=== PATIENT | female | born 1985 | race Caucasian/White ===

== ENCOUNTER → 2016-11-01 | Outpatient (CLI) | payer OTHER | END | disposition home or self-care (01) | LOC: C.PAPS 14:13 | PROVIDERS: ATTEND Obstetrics & Gynecology | DX: Z12.4 Encounter for screening for malignant neoplasm of cervix (principal) ==

== ENCOUNTER → 2018-01-27 | Outpatient (CLI) | payer OTHER | END | disposition home or self-care (01) | LOC: C.LAB1850 12:49 | PROVIDERS: ATTEND Physician Assistant | DX: N91.2 Amenorrhea, unspecified (principal) ==

== ENCOUNTER → 2018-05-04 | Outpatient (CLI) | payer OTHER ==
[2018-05-04 11:16] LABS: FOLLICLE STIMULAT HORMONE 6.71 IU/L; LUTEINIZING HORMONE 11.86 IU/L; PROLACTIN 8.06 ng/mL
== END | disposition home or self-care (01) ==
LOC: C.LAB1850 09:30
PROVIDERS: ATTEND Internal Medicine Endocrinology, Diabetes & Metabolism
DX: N91.2 Amenorrhea, unspecified (principal)

== ENCOUNTER 2019-04-18 20:07 | Inpatient (IN) ==
--- NOTE | 2019-04-18 20:30 | History & Physical Report ---
Date of Service April 18, 2019 Assessment & Plan (1) 40 weeks gestation of : Labor - will admit to L&D. OK for epidural. Labs, IV, EFM/toco. Patient is amenable to pitocin augmentation if needed. History of Present Illness Chief Complaint: contractions Primary Care Provider: CATRACHITA PCP 34yo @ 40 0/7 presents with regular contractions. No leaking of fluid or vaginal bleeding. + movement. complicated by Rh negative status. Rec'd Rhogam 01/25/19. Had shingles at 30w in this . Patient History Medical History Migraines Shingles Social History Preferred Language: French Communication Ability: Effective Community Cultural Development Officer Required: No Beliefs That Will Affect Care: None marital status: Current Living Situation: Spouse Other Information That Helps Us Care for You: No Feels Safe at Home: Yes Safety Concerns: Feels Safe At This Time Smoking Status: Never smoker Hx Alcohol Use: No Hx Substance Use: No Review of Systems All systems reviewed & are unremarkable except as noted in HPI & below Physical Exam Physical Exam: Gen: AAOx3 NAD CV: RRR L: CTAB Abd: soft, gravid, NTTP. Ext: no edema, no calf tenderness FHT: 150s mod lorri. +accels. +early decels with ctx [place]: Q 2-4 min SVE: 5/100/-2, bulging membranes Results & Data Vital Signs (Past 12 Hours) Vital Signs Pulse BP 04/18/19 20:22 63 118/77
[2019-04-18] MEDS ORDERED: OXYTOCIN 30 UNITS/500 ML BAG IV PRN ×2 (20:42)
[2019-04-18] MEDS: LACTATED RINGER'S 1,000 ML IV PRN ×2 (20:45→21:50)
[2019-04-18] MEDS ORDERED: ePHEDrine sulfate 50 MG/ML AMP ONE (20:49)
[2019-04-18] MEDS ORDERED: BUPIVACAINE 0.25% 30 ML VIAL ONE (20:49)
[2019-04-18] MEDS ORDERED: fentaNYL 2MCG/ML ROPIV 1.25MG/ML 100 ML BAG EPI ONE (20:49)
[2019-04-18] MEDS ORDERED: fentaNYL citrate 100 MCG/2 ML VIAL ONE (20:49)
[2019-04-18 21:15] LABS: Hemoglobin 11.4 g/dL (12.0-16.0); Mean Corpuscular Volume 90.9 fL (80-100); Mean Platelet Volume 10.7 fL (7.4-10.4); Platelet Count 178 K/uL (130-400); RDW Coefficient of Variation 12.4 % (11.5-14.5); RDW Standard Deviation 41.3 fL (36.4-46.3); Red Blood Count 3.63 M/uL (4.2-5.4); White Blood Count 11.92 K/uL (4.8-10.8)
[2019-04-18] MEDS ORDERED: DiphenhydrAMINE HCL 50 MG/ML VIAL IV PRN (21:30)
[2019-04-18] MEDS ORDERED: ONDANSETRON INJ 2 MG/ML 2 ML VIAL IV PRN (21:30)
[2019-04-18] MEDS ORDERED: NALOXONE HCL 1 MG in SODIUM CHLORIDE 0.9% 1000ML 1,000 ML IV PRN (21:30)
[2019-04-18] MEDS ORDERED: NALOXONE HCL 0.4 MG/1 ML VIAL/CARP IV PRN (21:30)
[2019-04-18] MEDS ORDERED: NALBUPHINE HCL INJ 10 MG/ML AMP IV PRN (21:30)
[2019-04-18] MEDS ORDERED: ePHEDrine sulfate 50 MG/ML AMP IV PRN (21:30)
[2019-04-18] MEDS ORDERED: fentaNYL 2MCG/ML ROPIV 1.25MG/ML 100 ML BAG EPI PRN (21:30)
--- NOTE | 2019-04-18 21:30 | Anesthesiology Consultation ---
Date of Service April 18, 2019 History Height/Weight Height: 5 ft 3 in Weight: 71.758 kg Past Medical History Medical History Migraines Shingles Social History Smoking Status: Never smoker Hx Alcohol Use: No Hx Substance Use: No Physical Exam Vital Signs Last Vital Signs Temp 36.7 C 04/18/19 20:23 Pulse 63 04/18/19 20:22 Resp 18 04/18/19 20:23 BP 118/77 04/18/19 20:22 Testing Laboratory Results 04/18/19 20:54
--- NOTE | 2019-04-18 21:34 | Anesthesiology Consultation ---
Date of Service April 18, 2019 Assessment & Plan Chart Review Chart Review: Patient NOT seen in Pre Admission Testing and Acceptable Risk for Labor Epidural Consults Requested none ASA ASA2 Proposed Anesthesia Anesthesia Type: Labor Epidural and CSE Risk / Benefits Reviewed With: PT / POA / Parent / Guardian, Accepts Plan and Informed Consent Obtained History Height/Weight Height: 5 ft 3 in Weight: 71.758 kg NPO Date Last Intake of Fluids: 04/18/19 Time Last Intake of Fluids: 19:30 Date Last Intake of Solids: 04/18/19 Time Last Intake of Solids: 15:30 Past Medical History Medical History Migraines Shingles Exercise / Class Metabolic Activity II 4-5 Yardwork/Stairs/Walk up hill Past Anesthesia History No Hx of Anesthesia Complications and No Family Hx of Anesthesia Complications History of PONV No Hx of PONV Social History Smoking Status: Never smoker Hx Alcohol Use: No Hx Substance Use: No Review of Systems no chest pain or sob Physical Exam Vital Signs Last Vital Signs Temp 36.7 C 04/18/19 20:23 Pulse 63 04/18/19 20:22 Resp 18 04/18/19 20:23 BP 118/77 04/18/19 20:22 ENMT Mouth: no TMJ abnormality Thyromental Distance: > or= 3.5 Finger Breadths Mallampati Class: II Neck normal visual inspection Respiratory normal respiratory effort Auscultation: lungs clear to auscultation bilaterally Cardiovascular Rate/Rhythm: regular rate and regular rhythm Musculoskeletal Spine: normal cervical ROM Neurologic moves all extremities Psychiatric Orientation: alert and oriented x 3 Testing Laboratory Results 04/18/19 20:54
[2019-04-18 22:04] LABS: Mean Corpuscular Hgb Conc 34.5 g/dL (32-36)
--- NOTE | 2019-04-18 23:29 | Obstetrical Progress Note ---
Date of Service April 18, 2019 Subjective Comfortable with epidural. FHT 130s. Mod lorri. +accels. Early decels. Rare late/variable decels. [place] Q 4 SVE 7-8/100/-1, SROM during cervix exam for clear fluid Continue labor. Anticipate . Results & Data Vital Signs (Past 12 Hours) Vital Signs Temp Pulse Resp BP Pulse Ox 04/18/19 23:24 86 109/70 100 04/18/19 23:21 68 105/60 04/18/19 23:19 72 100 04/18/19 23:18 71 99/59 L 04/18/19 23:15 68 100/59 L 04/18/19 23:14 64 100 04/18/19 23:12 75 99/58 L 04/18/19 23:09 69 102/60 100 04/18/19 23:07 74 105/62 04/18/19 23:04 70 100 04/18/19 23:03 68 101/62 04/18/19 23:00 71 101/63 04/18/19 22:59 78 100 04/18/19 22:57 71 101/65 04/18/19 22:54 70 108/62 100 04/18/19 22:51 73 101/62 04/18/19 22:49 68 99 04/18/19 22:48 70 106/64 04/18/19 22:45 71 102/59 L 04/18/19 22:44 72 100 04/18/19 22:42 71 105/59 L 04/18/19 22:39 62 110/64 100 04/18/19 22:37 71 103/64 04/18/19 22:34 67 100 04/18/19 22:33 71 110/72 04/18/19 22:30 65 108/68 04/18/19 22:29 89 99 04/18/19 22:27 71 101/68 04/18/19 22:24 82 100/67 99 04/18/19 22:21 69 110/72 04/18/19 22:19 68 99 04/18/19 22:18 68 111/73 04/18/19 22:15 67 111/72 04/18/19 22:14 69 99 04/18/19 22:12 77 110/71 04/18/19 22:09 68 110/69 100 04/18/19 22:06 68 102/62 04/18/19 22:04 79 100 04/18/19 22:03 77 111/70 04/18/19 22:00 80 110/67 04/18/19 21:59 76 98 04/18/19 21:57 76 107/66 04/18/19 21:54 73 105/60 98 04/18/19 21:51 80 106/68 04/18/19 21:49 79 100 04/18/19 21:48 75 110/69 04/18/19 21:45 75 120/76 04/18/19 21:44 89 100 04/18/19 21:39 87 99 04/18/19 21:34 82 100 04/18/19 20:23 36.7 C 18 04/18/19 20:22 63 118/77
--- NOTE | 2019-04-19 02:00 | Obstetrical Progress Note ---
Date of Service April 19, 2019 Subjective Feeling urge to push with contractions. FHT 130s mod lorri +accels. prolonged decel with a long contraction, recovered. [place] Q 3-6 min SVE complete/100/0 to +1 station Beginning to push. Anticipate . Results & Data Vital Signs (Past 12 Hours) Vital Signs Temp Pulse Resp BP Pulse Ox 04/19/19 01:54 94 H 100 04/19/19 01:49 78 137/59 L 100 04/19/19 01:44 64 100 04/19/19 01:43 68 99/58 L 04/19/19 01:39 78 98 04/19/19 01:34 76 100 04/19/19 01:31 70 118/67 04/19/19 01:29 76 100 04/19/19 01:27 62 104/64 04/19/19 01:24 68 102/60 100 04/19/19 01:21 71 104/61 04/19/19 01:19 70 114/69 100 04/19/19 01:15 74 104/63 04/19/19 01:14 70 100 04/19/19 01:12 66 107/68 04/19/19 01:09 68 103/63 100 04/19/19 01:06 69 100/65 04/19/19 01:04 65 100 04/19/19 01:03 67 100/62 04/19/19 01:00 77 99/60 L 04/19/19 00:59 73 100 04/19/19 00:57 75 104/62 04/19/19 00:54 151 H 111/65 100 04/19/19 00:52 66 108/64 04/19/19 00:49 76 100 04/19/19 00:48 81 100/61 04/19/19 00:45 70 102/63 04/19/19 00:44 67 100 04/19/19 00:42 70 108/64 04/19/19 00:39 73 100/62 100 04/19/19 00:36 68 101/62 18 00:34 79 100 04/19/19 00:33 69 106/65 18 00:30 67 108/62 04/19/19 00:29 69 100 04/19/19 00:27 67 108/63 04/19/19 00:24 74 104/63 100 04/19/19 00:21 75 107/61 04/19/19 00:19 71 100 04/19/19 00:18 68 109/60 04/19/19 00:16 69 118/66 04/19/19 00:14 76 100 04/19/19 00:12 74 106/62 04/19/19 00:09 75 114/72 100 04/19/19 00:06 70 109/66 04/19/19 00:04 75 100 04/19/19 00:03 75 109/65 04/19/19 00:00 37.0 C 70 107/65 04/18/19 23:59 70 100 04/18/19 23:57 67 110/67 04/18/19 23:55 68 117/68 04/18/19 23:54 65 100 04/18/19 23:51 64 103/64 04/18/19 23:49 71 100 04/18/19 23:48 68 106/63 04/18/19 23:45 68 106/61 04/18/19 23:44 74 100 04/18/19 23:42 70 108/64 04/18/19 23:39 72 98/60 L 100 04/18/19 23:36 64 102/65 04/18/19 23:35 68 100/56 L 04/18/19 23:34 74 100 04/18/19 23:30 70 93 04/18/19 23:29 77 100 04/18/19 23:28 73 109/62 04/18/19 23:24 86 109/70 100 04/18/19 23:21 68 105/60 04/18/19 23:19 72 100 04/18/19 23:18 71 99/59 L 04/18/19 23:15 68 100/59 L 04/18/19 23:14 64 100 04/18/19 23:12 75 99/58 L 04/18/19 23:09 69 102/60 100 04/18/19 23:07 74 105/62 04/18/19 23:04 70 100 04/18/19 23:03 68 101/62 04/18/19 23:00 71 101/63 04/18/19 22:59 78 100 04/18/19 22:57 71 101/65 04/18/19 22:54 70 108/62 100 04/18/19 22:51 73 101/62 04/18/19 22:49 68 99 04/18/19 22:48 70 106/64 04/18/19 22:45 71 102/59 L 04/18/19 22:44 72 100 04/18/19 22:42 71 105/59 L 04/18/19 22:39 62 110/64 100 04/18/19 22:37 71 103/64 04/18/19 22:34 67 100 04/18/19 22:33 71 110/72 04/18/19 22:30 65 108/68 04/18/19 22:29 89 99 04/18/19 22:27 71 101/68 04/18/19 22:24 82 100/67 99 04/18/19 22:21 69 110/72 04/18/19 22:19 68 99 04/18/19 22:18 68 111/73 04/18/19 22:15 67 111/72 04/18/19 22:14 69 99 04/18/19 22:12 77 110/71 04/18/19 22:09 68 110/69 100 04/18/19 22:06 68 102/62 04/18/19 22:04 79 100 04/18/19 22:03 77 111/70 04/18/19 22:00 80 110/67 04/18/19 21:59 76 98 04/18/19 21:57 76 107/66 04/18/19 21:54 73 105/60 98 04/18/19 21:51 80 106/68 04/18/19 21:49 79 100 04/18/19 21:48 75 110/69 04/18/19 21:45 75 120/76 04/18/19 21:44 89 100 04/18/19 21:39 87 99 04/18/19 21:34 82 100 04/18/19 20:23 36.7 C 18 04/18/19 20:22 63 118/77
--- NOTE | 2019-04-19 05:17 | Delivery Summary ---
Vaginal Delivery Summary Date of Service April 19, 2019 Vaginal Delivery Summary Vaginal Delivery Summary: Pre-delivery diagnoses: 34yo @ 40 /, spontaneous labor Post-delivery diagnoses: same Procedure: spontaneous vaginal delivery Surgeon: Luz Davis DO Complications: none Findings: Viable female . Apgars: 8/9. Weight pending, please see nursery records. Estimated blood loss: 300ml Description of delivery: The patient progressed to complete with epidural anesthesia. She then began to push. She spontaneously vaginally delivered a viable female from the cephalic presentation. The head delivered in DEMETRI position. No nuchal cord noted. The anterior shoulder delivered, followed by the posterior shoulder, followed by the body. The baby was placed on mother's abdomen and a spontaneous cry was heard. The cord was doubly clamped and cut. A segment was retained for cord gases. Cord blood was obtained. The placenta was delivered spontaneously intact with a 3-vessel cord. The uterus and vagina were swept of clots and debris. IV pitocin was given. The uterus became firm. The cervix, vagina, and perineum were inspected and a left sulcal vaginal laceration was noted and repaired. There was a superficial perineal laceration, but this was hemostatic and not repaired. Excellent hemostasis was observed. The mother and baby are recovering in stable and good condition in the room. Sponge, needle, and instrument counts were correct x 2. Luz Davis DO [facility] [place]
--- NOTE | 2019-04-19 06:03 | Anesthesia Procedure Note ---
Date of Service April 19, 2019 Anesthesia Post Epidural Note Vital Signs Vital Signs: Temp Pulse Resp BP Pulse Ox 36.9 C 83 18 105/61 99 04/19/19 02:10 04/19/19 05:49 04/19/19 04:15 04/19/19 05:49 04/19/19 04:49 Notes Mental Status: alert / awake / arousable and participated in evaluation Nausea / Vomiting: adequately controlled Pain: adequately controlled Airway Patency, RR, SpO2: stable & adequate BP & HR: stable & adequate Hydration State: stable & adequate Neuraxial Anesthesia: was administered and sensory block is resolving Anesthetic Complications: no major complications apparent and Pt Satisfied with anesthetic care Epidural: Removed without complications and With tip intact
[2019-04-19] MEDS ORDERED: SUPERCREAM 0.870% 15 GM JAR EXT PRN (06:11)
[2019-04-19] MEDS ORDERED: BENZOCAINE 20% AER SPR 82.5 GM CAN EXT PRN (06:11)
[2019-04-19] MEDS ORDERED: HYDROCORTISONE ACETATE 25 MG SUPP PR PRN (06:11)
[2019-04-19] MEDS ORDERED: ACETAMINOPHEN 325 MG TAB PO PRN (06:11)
[2019-04-19] MEDS ORDERED: OXYTOCIN 30 UNITS/500 ML BAG IV PRN (06:11)
[2019-04-19] MEDS ORDERED: BISACODYL 10 MG SUPP PR PRN (06:11)
[2019-04-19] MEDS ORDERED: OXYCODONE/ACETAMINOPHEN 5mg/325mg TAB PO PRN (06:11)
[2019-04-19] MEDS: IBUPROFEN 600 MG TAB PO PRN ×3 (09:09→20:37)
[2019-04-19] MEDS: DOCUSATE SODIUM 100 MG CAP PO SCH ×2 (17:52→20:36)
[2019-04-19] MEDS: PRENATAL VITAMIN 1 TAB PO SCH (17:52)
[2019-04-20] MEDS: IBUPROFEN 600 MG TAB PO PRN ×4 (04:40→21:20)
--- NOTE | 2019-04-20 05:49 | Obstetrical Progress Note ---
Date of Service <Alonzo Blair MD - Last Filed: 04/20/19 08:17> April 20, 2019 Assessment & Plan <Alonzo Blair MD - Last Filed: 04/20/19 08:17> Day #:: 1 ([34 y/o s/p vaginal delivery @ 40+0] -PPD# 1 - GBS negative, Blood Type O- - Feels well today. Eating well, voiding well, ambulating well. - Pain well controlled with Motrin. - Routine post care - After discharge will have [address] Davis.) Subjective <Alonzo Blair MD - Last Filed: 04/20/19 08:17> Ambulation: ambulating normally Voiding: no voiding problems Passing Gas:: Yes Diet Tolerance:: regular diet Lochia:: Moderate Feeding Type:: breast feeding Current Pain Level(1-10): 1 Physical Exam <Alonzo Blair MD - Last Filed: 04/20/19 08:17> OB PE General: Alert, oriented. No acute distress. Cardiac: Regular rate and rhythm, no murmurs/rubs/gallops. Respiratory: Clear to auscultation anterior and posteriorly, no wheezes/rales/rhonchi. No increased work of breathing. Symmetrical chest rise. No respiratory distress. Abdomen: Soft, nontender, nondistended. Bowel sounds present. Uterus: Uterine fundus firm, palpable 1 cm below umbilicus. Lower Extremities: No lower extremity edema or swelling. No deep calf pain. Temo's negative bilaterally. OB ROS Denies fever, chills, sweats Denies shortness of breath, difficulty breathing, chest pain, palpitations, chest pressure. Denies breast pain. Denies dysuria. Denies headache. Results & Data <Alonzo Blair MD - Last Filed: 04/20/19 08:17> Vital Signs (Past 12 Hours) Vital Signs Temp Pulse Resp BP Pulse Ox 04/20/19 04:25 36.5 C 77 16 99/63 L 98 04/19/19 23:45 36.5 C 61 16 107/69 98 04/19/19 20:25 36.5 C 77 14 110/70 99 <Johnna Kay MD, FACOG - Last Filed: 04/20/19 08:30> Co-Signing Physician Notes Resident Physician Supervision Note: I interviewed and examined the patient. Discussed with Dr. Blari and agree with findings and plan as documented in the note. Any exceptions or clarifications are listed here: Doing well. No issues. Documented By: Johnna Kay MD, FACOG
[2019-04-20 07:15] LABS: Hematocrit (blood only) 36.5 % (37-47); Hemoglobin 12.2 g/dL (12.0-16.0); Mean Corpuscular Hgb Conc 33.4 g/dL (32-36); Mean Corpuscular Volume 93.1 fL (80-100); Mean Platelet Volume 11.2 fL (7.4-10.4); Platelet Count 228 K/uL (130-400); Red Blood Count 3.92 M/uL (4.2-5.4); White Blood Count 19.77 K/uL (4.8-10.8)
[2019-04-20] MEDS: DOCUSATE SODIUM 100 MG CAP PO SCH ×2 (08:10→21:19)
[2019-04-20] MEDS: PRENATAL VITAMIN 1 TAB PO SCH (08:10)
[2019-04-20] MEDS ORDERED: DIPHTHERIA/TETANUS/PERTUSSIS 0.5 ML SYR/VIAL IM ONE (09:00)
[2019-04-20] MEDS ORDERED: BISACODYL 5 MG TABEC PO SCH (20:00)
--- NOTE | 2019-04-21 05:28 | Obstetrical Progress Note ---
Date of Service <Alonzo Blair MD - Last Filed: 04/21/19 07:45> April 21, 2019 Assessment & Plan <Alonzo Blair MD - Last Filed: 04/21/19 07:45> Day #:: 2 ([34 y/o s/p vaginal delivery at 40+0] -PPD#2 - GBS neg., Blood Type O- - Feels well today. Eating well, voiding well, ambulating well. - Pain well controlled. - Routine post care - After discharge will have [address] Davis.) Subjective <Alonzo Blair MD - Last Filed: 04/21/19 07:45> Ambulation: ambulating normally Voiding: no voiding problems Passing Gas:: Yes Diet Tolerance:: regular diet Lochia:: Small (as much as a regular period) Feeding Type:: breast feeding Current Pain Level(1-10): 2 (cramping with ) Physical Exam <Alonzo Blair MD - Last Filed: 04/21/19 07:45> OB PE General: Alert, oriented. No acute distress. Cardiac: Regular rate and rhythm, no murmurs/rubs/gallops. Respiratory: Clear to auscultation anterior and posteriorly, no wheezes/rales/rhonchi. No increased work of breathing. Symmetrical chest rise. No respiratory distress. Abdomen: Soft, nontender, nondistended. Bowel sounds present. Uterus: Uterine fundus firm, palpable 1 cm below umbilicus. Lower Extremities: No lower extremity edema or swelling. No deep calf pain. Temo's negative bilaterally. OB ROS Denies fever, chills, sweats Denies shortness of breath, difficulty breathing, chest pain, palpitations, chest pressure. Denies breast pain. Denies dysuria. Denies headache. Results & Data <Alonzo Blair MD - Last Filed: 04/21/19 07:45> Vital Signs (Past 12 Hours) Vital Signs Temp Pulse Resp BP 04/21/19 00:00 37.0 C 72 18 111/74 04/20/19 20:00 36.7 C 70 18 109/72 <Johnna Kay MD, FACOG - Last Filed: 04/21/19 07:53> Co-Signing Physician Notes Resident Physician Supervision Note: I interviewed and examined the patient. Discussed with Dr. Blair and agree with findings and plan as documented in the note. Any exceptions or clarifications are listed here: Doing well. Plan d/c. Instructions given. Documented By: Johnna Kay MD, FACOG
[2019-04-21 06:50] LABS: Hemoglobin 10.4 g/dL (12.0-16.0)
[2019-04-21] MEDS: PRENATAL VITAMIN 1 TAB PO SCH (09:19)
[2019-04-21] MEDS: DOCUSATE SODIUM 100 MG CAP PO SCH (09:20)
== END 2019-04-21 11:49 | disposition home or self-care (01) | DRG 807 ==
LOC: OPB 20:07 → 4S1 20:08 → 4S2 04-19 09:22